=== PATIENT | female | born 2000 | race African-American/Black ===

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

== ENCOUNTER 2018-12-26 10:34 | Emergency (ER) | payer OTHER ==
[~2018-12-26] VITALS: Ht 180.3 cm; Wt 70.5 kg
[2018-12-26 12:28] VITALS: BP 101/58
[2018-12-26] MEDS ORDERED: LIDOCAINE 2% VISCOUS 15 ML SOLUTION UDCUP PO ONE (12:30)
[2018-12-26] MEDS ORDERED: IBUPROFEN 800 MG TABLET PO ONE (12:30)
== END 2018-12-26 13:03 | disposition home or self-care (01) ==
LOC: EMS 10:36
DX: H92.01 Otalgia, right ear (principal); K12.0 Recurrent oral aphthae; J02.9 Acute pharyngitis, unspecified; F41.9 Anxiety disorder, unspecified; F12.90 Cannabis use, unspecified, uncomplicated

== ENCOUNTER 2025-05-15 00:05 | Emergency (ER) | payer OTHER ==
[~2025-05-15] VITALS: Ht 180.3 cm; Wt 77.3 kg
[2025-05-15 00:09] VITALS: TEMP 97.6
[2025-05-15 00:34] VITALS: BP 118/77; PULSE 78; RESP 14; O2SAT 99
[2025-05-15] MEDS: ACETAMINOPHEN 325 MG TABLET PO ONE (01:57)
[2025-05-15 02:36] LABS: PLATELET COUNT (AUTO) 222 K/uL (150-450); RED BLOOD CELL COUNT(AUTO) 4.17 MIL/uL (4.00-5.20); RED CELL DISTRIBUTION WIDTH 14.2 % (11.5-14.5); WHITE BLOOD COUNT (AUTO) 4.6 K/uL (4.5-11.0)
[2025-05-15] MEDS ORDERED: CYCL-448 PO (04:25)
== END 2025-05-15 04:41 | disposition home or self-care (01) ==
LOC: EMS 00:05
DX: M54.2 Cervicalgia (principal); F41.9 Anxiety disorder, unspecified; F12.90 Cannabis use, unspecified, uncomplicated; V49.88XA Car occupant (driver) (passenger) injured in other specified transport accidents, initial encounter; Y93.89 Activity, other specified; Y92.410 Unspecified street and highway as the place of occurrence of the external cause; Y99.8 Other external cause status
CPT/HCPCS: 72040; 84703; 85025; 99284